=== PATIENT | female | born 1940 | race Caucasian/White ===

== ENCOUNTER 2016-06-11 12:25 | Emergency (ER) | payer OTHER, MEDICARE ==
[~2016-06-11] VITALS: Ht 160 cm; Wt 54.4 kg
[~2016-06-11 12:25] MED LIST: ASPIRIN EC325 MG PO; FLUOXETINE HCL20 M2 PO; LEVOTHYROXINE75 MCG PO; LIPITOR 10MG10 MG PO; LISINOPRIL5 M1 PO; METOPROLOL TART25 M1 PO; OMEPRAZOLE20 M2 PO; PERCOCET 325 MG1 TA2 PO; PLAVIX75 M1 PO; POLYTRIM O200 GTT/BO OD; SIMVASTATIN40 M1 PO; TRAZODONE HCL50 M1 PO; VITAMIN D1000 UNI1 PO
--- NOTE | 2016-06-11 12:45 | ED NOSE COMPLAINT ---
History of Present Illness General Chief Complaint: General Adult Stated Complaint: BIBA CELAYA,NOSE BLEED Source: patient Exam Limitations: no limitations Allergies Coded Allergies: codeine (Severe, "PASS OUT" 07/06/15) Penicillins (Intermediate, FEVER, RASH 07/06/15) Sulfa (Sulfonamide Antibiotics) (Intermediate, RASH, FEVER 07/06/15) ascorbic acid (Intermediate, ITCHING 07/06/15) cortisone (Intermediate, VOMITING 07/06/15) Reconcile Medications Aspirin (Ecpirin) 325 MG TABLET.DR 1 TAB PO DAILY HEART HEALTH (Reported) Cholecalciferol (Vitamin D3) (Vitamin D) 1,000 UNIT CAPSULE 1 TAB PO DAILY SUPPLEMENT (Reported) Clopidogrel Bisulfate (Plavix) 75 MG TABLET 75 MG PO DAILY STROKE STOP Feb Fluoxetine HCl 20 MG CAPSULE 1 CAP PO BID DEPRESSION (Reported) Levothyroxine Sodium 75 MCG TABLET 1 TAB PO DAILY THYROID (Reported) Lisinopril 5 MG TABLET 1 TAB PO DAILY HYPERTENSION Metoprolol Tartrate 25 MG TABLET 1 TAB PO BID BLOOD PRESSURE Mirtazapine (Remeron) (Unknown Strength) TABLET (Unknown Dose) PO QPM DEPRESSION (Reported) Omeprazole 20 MG CAPSULE.DR 1 CAP PO DAILY GERD (Reported) Simvastatin (Simvastatin*) 40 MG TABLET 1 TAB PO QPM CHOLESTROL (Reported) Trazodone HCl 50 MG TABLET 1 TAB PO QPM SLEEP (Reported) Triage Nurses Notes Reviewed? yes Onset: Abrupt Duration: gone now Timing: single episode today Injury Environment: home Severity: mild Severity Numbers: 1 HPI: Patient is a 75-year-old female with past medical history of CVA with left body hemiparesis however patient still ambulates with an assisted walker which patient currently is on aspirin regimen for prophylactic treatment who is brought in by ambulance for concerns of a resolved 15 minute epistasis to the left nares. It is noted through triage notes and by patient that the son who takes care of patient was temporarily living with the patient is being burdened and overwhelmed that he states that he can no longer take care of Terra. Patient also states that last week she was vacuuming the floor and which since she has noticed a gradual onset of right lateral elbow discomfort that's made worse with wrist movements. Patient denies any mechanism of injury. Denies any mechanism of injury or nose trauma (FRANCHESKA ROLLE,LASHAUN) Vital Signs & Intake/Output Vital Signs & Intake/Output ED Intake and Output 06/12 0000 06/11 1200 Intake Total Output Total Balance Patient 120 lb Weight Past History Travel History Traveled to [place] past 21 day No Medical History Any Pertinent Medical History? 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 No (LASHAUN ROBLES) Review of Systems Review of Systems Constitutional: Reports: no symptoms. EENTM: Reports: see HPI, epistaxis. Respiratory: Reports: no symptoms. Cardiovascular: Reports: no symptoms. GI: Reports: no symptoms. Genitourinary: Reports: no symptoms. Musculoskeletal: Reports: see HPI. Skin: Reports: no symptoms. Neurological/Psychological: Reports: no symptoms. Hematologic/Endocrine: Reports: see HPI, bleeding. Immunologic/Allergic: Reports: no symptoms. All Other Systems: Reviewed and Negative (LASHAUN ROBLES) Physical Exam Physical Exam General Appearance: no apparent distress, alert Nose: normal inspection, NARES ARE PATENT NO DRIED BLOOD NO ACTIVE BLEEDING NORMAL INSPECTION Comments: Well-developed well-nourished person in no acute distress HEENT: Normal EENT exam, extraocular motion intact, no nystagmus. Pupils equally round and reactive to light and accommodation. Nose is atraumatic. External auditory canal and Tympanic membranes clear. Pharynx normal. No swelling or edema. Neck: Supple, no lymphadenopathy, normal range of motion without pain or tenderness Back: Nontender, no CVA tenderness. Cardiovascular: Regular rate and rhythms no murmurs rubs or gallops, normal JVP Respiratory: Chest nontender. No respiratory distress.breath sounds clear to auscultation bilaterally Abdomen: Soft, nontender nondistended, no appreciable organomegaly. Normal bowel sounds. No ascites Extremity: No edema, no calf tenderness to palpation, normal and equal pulses. Right elbow normal inspection tenderness noted to lateral epicondyle reproducible pain upon wrist extension to the lateral epicondyle. No erythema no swelling no warmth full active range of motion noted with flexion and extension Right upper extremity dermatomes intact radial pulse +2 Neuro: Alert oriented x3, cranial nerves II through XII grossly intact. Skin: No appreciable rash on exposed skin, skin is warm and dry. Psych: Mood and affect is normal, memory and judgment is normal. (LASHAUN ROBLES) Progress Differential Diagnoses I considered the following diagnoses in my evaluation of the patient: [Epistasis , hypercoagulable state, fracture, tendinitis,] Plan of Care: Current Medications Sig/Brenda Start time Last Medication Dose Stop Time Status Admin Acetaminophen 650 MG ONCE ONE 06/11 134 UNVr (Tylenol) 06/11 134 Patient was noted to ambulate with a walker to the bathroom showing steady gait supervised by me and hospital staff. Patient due to his her present illness and exam finds has resolved EPISTAXIS patient on physical exam findings to the right elbow noted to have concerns of lateral epicondylitis. Tylenol was administered for inflammation Patient's otherwise had unremarkable physical exam findings Patient was alert and oriented and showed left-sided hemiparesis known from previous CVA. Discussed patient with case management who will evaluate patient to improve home health services Case management also discussed with disposition plan with the son who states that patient can return back home and agrees and has no questions. Discussed disposition plan with AND DR. BARNHART WHO AGREE She will be transported back via [facility]. Private residence (LASHAUN ROBLES) Initial ED EKG: none (LASHAUN ROBLES) Departure Departure Disposition: HOME OR SELF CARE Condition: Stable Clinical Impression Primary Impression: Epistaxis Secondary Impressions: Right elbow tendonitis Referrals: NAIF SEVILLA,EDEN Reveles Additional Instructions: As discussed begin [id number] Tylenol for pain and ice the area directly 20 minutes every 2 hours for pain and inflammation. If no better in one week follow up with orthopedic DR. CORONA or your primary care doctor for your elbow. If a nosebleed reoccurs apply direct pressure for approximately 10-15 minutes in the nosebleed continues return to the emergency room. Follow-up with her primary care doctor next week for recheck of symptoms. If symptoms worsen return to the emergency room. CASE management also evaluated and will provide extra home health services Departure Forms: Customer Survey General Discharge Information (LASHAUN ROBLES) PA/CERTIFIED INDOOR ENVIRONMENTALIST Co-Sign Statement Statement: ED Attending supervision documentation- [] I saw and evaluated the patient. I have also reviewed all the pertinent lab results and diagnostic results. I agree with the findings and the plan of care as documented in the PA's/CERTIFIED INDOOR ENVIRONMENTALIST's documentation. [X] I have reviewed the ED Record and agree with the PA's/CERTIFIED INDOOR ENVIRONMENTALIST's documentation. [] Additions or exceptions (if any) to the PAs/CERTIFIED INDOOR ENVIRONMENTALIST's note and plan are summarized below: [] (OBEY SEVILLA,VINNIE) PA/CERTIFIED INDOOR ENVIRONMENTALIST Co-Sign Statement Statement: ED Attending supervision documentation- [] I saw and evaluated the patient. I have also reviewed all the pertinent lab results and diagnostic results. I agree with the findings and the plan of care as documented in the PA's/CERTIFIED INDOOR ENVIRONMENTALIST's documentation. [] I have reviewed the ED Record and agree with the PA's/CERTIFIED INDOOR ENVIRONMENTALIST's documentation. [] Additions or exceptions (if any) to the PAs/CERTIFIED INDOOR ENVIRONMENTALIST's note and plan are summarized below: [] (JORDAN SUERO MD)
[2016-06-11] MEDS ORDERED: REMERON15 M2 PO (15:18)
[2016-06-11] MEDS ORDERED: ECPIRIN325 MG PO (15:19)
[2016-06-11 15:59] VITALS: BP 144/80
== END 2016-06-11 16:00 ==
LOC: ERH 12:25
DX: R04.0 Epistaxis (principal); M77.11 Lateral epicondylitis, right elbow